=== PATIENT | male | born 1960 | race Caucasian/White ===

== ENCOUNTER 2024-08-18 17:52 | Emergency (ER) | payer BC, SELFPAY ==
[2024-08-18 17:56] VITALS: BP 160/86
--- NOTE | 2024-08-18 21:09 | ED.GENMED ---
History of Present Illness
General
Chief Complaint: Musculo-Skeletal Complaint
Time Seen by Provider: 08/18/24 21:00
History of Present Illness
History of Present Illness:
Patient is a 63-year-old male presenting to the emergency department with right knee swelling. Patient states that in June he had the same issue where he had sudden swelling of his right knee. He went to an orthopedic surgeon who drained over
100 mL from his knee. He states that today he was walking when it started to swell. He has been having some chills. The joint does feel hot. He is having difficulty with range of motion secondary to the swelling. He denies any trauma. No easy
bruising or bleeding. He does state last time there was some blood in the joint. No family or personal history of bleeding disorders.
Past History
Past History
ED Past Medical History: Other (kidney stones)
ED Past Surgical History: Orthopedic and Urological
Social History
Tobacco: Non-smoker
Personal:
Living: with family
Employment: Employed
Phy Exam
Physical Exam
Physical Exam:
GENERAL: in no acute distress
HEENT: normocephalic, extraocular movements intact
NECK: normal inspection
RESPIRATORY: no respiratory distress
CARDIOVASCULAR: regular rate and rhythm
EXTREMITIES: Right knee significantly swollen, slightly warm, no overlying erythema, limited range of motion secondary to pain
NEUROLOGIC: awake and alert, moves all extremities
SKIN: warm
Course
Orders/Labs/Results
Orders:
Orders
08/18/24 21:08
Ketorolac [Toradol] 15 mg IM NOW STA
CR Knee- Right 4 Or More View* Urgent
Reason For Exam: knee pain
08/18/24 23:01
Body Fluid Cell Count Urgent
What is the Body Fluid: joint
Date Specimen was Collected: 08/18/24
Time Specimen was Collected: 22:59
Comment: with DIFF
Body Fluid Crystals Urgent
What is the Body Fluid: joint
Date Specimen was Collected: 08/18/24
Time Specimen was Collected: 22:59
Body Fluid Glucose Urgent
Fluid Source: Other
Other Source: joint
Date Specimen was Collected: 08/18/24
Time Specimen was Collected: 22:59
Lyme PCR, DNA [S] Urgent
Fluid Culture with Gram Stain Urgent
RUBY Source: Joint Fluid
Specimen Description:
Date Specimen was Collected: 08/18/24
Time Specimen was Collected: 22:59
Vital Signs
Initial and Last Documented VS:
Initial Vital Signs
Temp Pulse Resp BP Pulse Ox
97.4 F 78 18 160/86 99
08/18/24 17:56 08/18/24 17:56 08/18/24 17:56 08/18/24 17:56 08/18/24 17:56
Last Documented Vital Signs
Temp Pulse Resp BP Pulse Ox
98.1 F 76 17 145/86 97
08/18/24 22:59 08/18/24 22:59 08/18/24 22:59 08/18/24 22:59 08/18/24 22:59
Procedures
Incision/Drainage/Joint Aspiration
Right Knee:
Anethesia: 1% Lidocaine
Preparation: cleaned with Betadine
Type of procedure: aspiration
How much fluid was obtained?: number in mls (45)
Fluid description: blood tinged
Treatment: bandaid applied
MDM/Problems Addressed
Differential Diagnosis Includes:
Patient is a 63-year-old man presenting to the emergency department with right knee swelling that occurred spontaneously today. He does have history of this in the past. Vitals unremarkable and exam does show right knee swelling with some mild
warmth. Likely a traumatic joint effusion. He does have history of arthritis. Certainly could be contributing to it. Given the chills that he started to have today and then knee being slightly warm could be septic joint. Will obtain x-ray and
completed diagnostic tap. I did discuss with patient versus versus benefit of draining the effusion. Will hold off at this time.
*Critical Care Note
Total Time (30-74mins, 75-104mins- exclusive of procedures): Not Applicable
Update Note
Update Note:
X-ray per my interpretation with joint effusion. Diagnostic tap completed. Please see procedure note above. Patient is anxious to leave. I did advise patient to stay for at least the WBC result.
WBC at 4000. Likely inflammatory infusion. The other results are pending at this time however patient is requesting discharge. Patient advised to follow-up via the portal. He does have a follow-up appointment with his orthopedic surgeon tomorrow
at 4 PM. Will give patient's crutches to help with ambulation. Patient advised on crutches icing and elevation. Will discharge at this time.
ED Attending Note
-
Portions of this chart may have been created with voice recognition software.� Occasional wrong word or��sound alike� substitutions may have occurred due to the inherent limitations of voice recognition software.
Discharge Plan
Departure
Patient Disposition: Home (Routine Discharge)
Date of Disposition: 08/18/24
Time of Disposition: 23:54
Patient with high blood pressure during this ER visit?: No
Discharge Problem:
Joint effusion of knee
Instructions: Swollen Joints (DC)
Prescriptions:
No Action
amoxicillin-pot clavulanate 1 TABLET tablet
1 tab PO Q12 Qty: 10 0RF
Referrals:
Molly Balderrama MD [Family Provider] -
Activity Restrictions/Additional Instructions:
You were seen in the Emergency Department today for knee swelling. While you were here we performed blood work, which was reassuring. Please make sure you follow-up with your orthopedic surgeon.
We would like for you to follow up with your primary care physician for further evaluation. If you experience fever, worsening of your symptoms, or develop any other new or concerning symptoms, please return to the Emergency Department immediately.
Please see the attached sheet for additional information.
Interventions
Interventions:
*Risk Screen - Suicide Last Done: 08/18/24 17:56
*General Assessment Last Done: 08/18/24 17:56
*Neglect/Abuse Screening Last Done: 08/18/24 17:56
*ED COVID-19 Vaccine History Last Done: 08/18/24 21:29
ED-Musculoskeletal Assessment Last Done: 08/18/24 21:29
Discharge Date and Time
Print Language: [place]
[2024-08-18] MEDS: TORADOL 15 MG IM (21:17)
[2024-08-18 22:59] VITALS: BP 145/86
[2024-08-18 23:31] LABS: Body Fluid Glucose 66 mg/dl
[2024-08-18 23:50] LABS: Body Fluid Mononuclear 63.5 %; Body Fluid Polymorphonuclear 36.5 %
[2024-08-18 23:51] LABS: Body Fluid WBC 4037 /CUMM
== END 2024-08-19 00:16 | disposition home or self-care (01) ==
LOC: EMR 17:52
PROVIDERS: EMERGENCY PHYSICIAN Student in an Organized Health Care Education/Training Program; FAMILY PHYSICIAN Family Medicine
DX: M25.461 Effusion, right knee (principal)
CPT/HCPCS: 99283; 20610; 73564; 82945; 87015; 87070; 87205; 87476; 89051; 89060

== ENCOUNTER → 2024-10-13 11:01 | Outpatient (REF) | payer BC, SELFPAY | LOC: RAD 11:01 | PROVIDERS: ATTENDING PHYSICIAN Surgery Vascular Surgery; FAMILY PHYSICIAN Family Medicine | DX: M25.00 Hemarthrosis, unspecified joint (principal) | CPT/HCPCS: 75635; Q9967 ==